=== PATIENT | female | born 1960 ===

== ENCOUNTER 2018-06-16 09:18 | Emergency (ER) | payer MEDICAID ==
[2018-06-16 09:22] VITALS: BMI 25.9
--- NOTE | 2018-06-16 10:16 | ED PDOC ---
HPI: General Adult Time Seen by Provider: 06/16/18 09:27 Chief Complaint (Provider): Bug bite History Per: Patient History/Exam Limitations: no limitations Additional History Per: Patient Additional Complaint(s): 57yo female, comes to ER stating she thinks there are "bugs all over" her body. Patient states she was staying at a friend's house who told her they used to have bed bugs, but that was "taken care of." She states she is looking for a new place and in the interim, is concerned since she "sees bugs of all different colors" and thinks they are all over her body. Otherwise, she has no medical complaints. PMD: Ady Blanco Past Medical History Reviewed: Historical Data, Nursing Documentation, Vital Signs Vital Signs: Last Vital Signs Temp 98.2 F 06/16/18 09:22 Pulse 75 06/16/18 09:22 Resp 16 06/16/18 09:22 BP 115/68 06/16/18 09:22 Pulse Ox 96 06/16/18 09:22 - Medical History Other PMH: dysthymic disorder - Surgical History Surgical History: No Surg Hx - Family History Family History: States: No Known Family Hx - Home Medications Home Medications: Ambulatory Orders Medication Instructions Recorded DiphenhydrAMINE 1% [Benadryl 1 / TP Q8H PRN #1 tube 06/16/18 Maximum Strength 1%] - Allergies Allergies/Adverse Reactions: Allergies Allergy/AdvReac Type Severity Reaction Status Date / Time No Known Allergies Allergy Verified 06/16/18 10:56 Review of Systems ROS Statement: Except As Marked, All Systems Reviewed And Found Negative Skin: Positive for: Other ("bugs all over") Physical Exam - Reviewed Nursing Documentation Reviewed: Yes Vital Signs Reviewed: Yes - Physical Exam Appears: Positive for: No Acute Distress Head Exam: Positive for: ATRAUMATIC, NORMAL INSPECTION, NORMOCEPHALIC Skin: Positive for: Normal Color, Warm, Dry. Negative for: Rash Eye Exam: Positive for: EOMI, PERRL Neck: Positive for: Supple Cardiovascular/Chest: Negative for: Tachycardia Respiratory: Negative for: Respiratory Distress Back: Positive for: Other (2 superficial linear abrasions noted on back, consistent with scratch haider. No erythema, edema, induration or bite haider noted. ) Extremity: Positive for: Normal ROM Neurological/Psych: Positive for: Awake, Alert Comments: Hair examined and no evidence of bugs noted; no bites, edema, erythema or induration noted to the scalp. - ECG O2 Sat by Pulse Oximetry: 96 (RA) Pulse Ox Interpretation: Normal Medical Decision Making Medical Decision [place] female, concerned she has "bugs all over" Plan: -- Patient informed of exam findings and discussed that there weren't any bugs present. Patient to be given prescription for Benadryl topical - instructed to take medications as prescribed. Scribe Attestation: Documented by Shanna Sotomayor, acting as a scribe for Saima Pagan MD. Provider Scribe Attestation: All medical record entries made by the Scribe were at my direction and personally dictated by me. I have reviewed the chart and agree that the record accurately reflects my personal performance of the history, physical exam, medical decision making, and the department course for this patient. I have also personally directed, reviewed, and agree with the discharge instructions and disposition. Disposition - Clinical Impression Clinical Impression: Pruritus, Bed bug bite - Disposition Referrals: [facility] [Outside] Disposition: Routine/Home Disposition Time: 10:24 Condition: STABLE Prescriptions: DiphenhydrAMINE 1% [Benadryl Maximum Strength 1%] 1 / TP Q8H PRN #1 tube PRN Reason: Itching / Pruritus Instructions: Itchy Skin
[2018-06-16 11:48] VITALS: BP 110/78; PULSE 78; RESP 19; O2SAT 98
[2018-06-16 11:49] VITALS: TEMP 97
== END 2018-06-16 11:48 | disposition home or self-care (01) ==
LOC: H.ER 09:18
DX: L29.9 Pruritus, unspecified (principal); T14.8XXA Other injury of unspecified body region, initial encounter; W57.XXXA Bitten or stung by nonvenomous insect and other nonvenomous arthropods, initial encounter